=== PATIENT | female | born 2000 | race Two or more races ===

== ENCOUNTER 2024-04-21 06:30 | Emergency (ER) | payer MEDICAID, OTHER ==
[~2024-04-21] VITALS: Ht 152.4 cm; Wt 45.5 kg
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
[2024-04-21 10:32] VITALS: BP 113/72; TEMP 98.2
[2024-04-21 10:39] VITALS: PULSE 72; RESP 16; O2SAT 99
[2024-04-21] MEDS ORDERED: IBU600T PO (10:44)
[2024-04-21] MEDS: KETOROLAC TROMETH 60MG/2ML VIAL IM ONE (10:57)
== END 2024-04-21 10:38 | disposition home or self-care (01) ==
LOC: EDBD 06:30 → ER 06:30
DX: R51.9 Headache, unspecified (principal); M54.2 Cervicalgia; M54.9 Dorsalgia, unspecified; Z88.5 Allergy status to narcotic agent; Z88.8 Allergy status to other drugs, medicaments and biological substances; V43.52XA Car driver injured in collision with other type car in traffic accident, initial encounter; Y93.89 Activity, other specified; Y92.410 Unspecified street and highway as the place of occurrence of the external cause; Y99.8 Other external cause status
CPT/HCPCS: 70450; 72040; 72100; 96372; 99285; J1885